=== PATIENT | male | born 1960 | race Caucasian/White ===

== ENCOUNTER → 2016-10-01 | Outpatient (CLI) | payer BC ==
[2016-10-01 15:55] LABS: HEMATOCRIT 46.7 % (42.0-52.0); HEMOGLOBIN 15.5 g/dL (14.0-18.0); MEAN CORPUSCULAR HEMOGLOBIN 31.6 PG (27-31); MEAN CORPUSCULAR HGB CONC 33.2 g/dL (33-37); MEAN CORPUSCULAR VOLUME 95.1 FL (80-90); MEAN PLATELET VOLUME 10.6 FL (7.4-12.2); RED BLOOD COUNT 4.91 10^6/uL (4.70-6.10)
== END ==
LOC: MOB LAB 15:18
PROVIDERS: ATTEND Family Medicine
DX: R59.0 Localized enlarged lymph nodes (principal)
CPT/HCPCS: 36415; 85027

== ENCOUNTER → 2016-10-03 | Outpatient (CLI) | payer BC ==
--- NOTE | 2016-10-05 21:38 | DI ---
ULTRASOUND OF THE NECK, 10/03/2016 1:44 PM: Clinical History: Lymphadenopathy on the right side. Previous Exam: None at this facility. High resolution scans are obtained in multiple projections through both sides of the neck using the h igh-resolution linear ray probe. Color Doppler ultrasound was also performed. Scans through the left side of the neck show multiple lymph nodes anteriorly and posteriorly to the s ternocleidomastoid muscle and all of these are within normal limits in size. Scans through the same a reas on the right side show multiple lymph nodes that are similar to the left side with the exception of one lymph node that is enlarged and measures approximately 1 x 1 x 2.5 cm. No soft tissue masses identified. Limited views of the thyroid gland are normal. Reading: There is one mildly enlarged lymph node in the right side of the neck were the patient indicated a dunia mp was present. All other lymph nodes on the right side of the neck and those of the left side of nec k are normal. No soft tissue mass is identified.
== END ==
LOC: US 13:41
PROVIDERS: ATTEND Family Medicine
DX: R59.1 Generalized enlarged lymph nodes (principal)
CPT/HCPCS: 76536